=== PATIENT | male | born 1970 | race American Indian/Alaskan Native ===

== ENCOUNTER 2019-10-05 12:16 | Emergency (ER) | payer MEDICARE ==
--- NOTE | 2019-10-05 13:08 | Emergency Department Report ---
<VLADISLAV DOMINGUEZ - Last Filed: 10/05/19 15:41> ED Altered Mental Status HPI - General Chief Complaint: Altered Mental Status Stated Complaint: ALTERED MENTAL STATUS Time Seen by Provider: 10/05/19 12:46 - Related Data Home Medications Medication Instructions Recorded Confirmed Last Taken Benztropine [Cogentin] 1 mg PO BID 10/05/19 10/05/19 Unknown [place] Carbonate ER [Lithobid ER] 300 mg PO BID 10/05/19 10/05/19 10/05/19 Sertraline [Zoloft] 50 mg PO QDAY 10/05/19 10/05/19 10/05/19 haloperidoL [Haldol] 10 mg PO QDAY 10/05/19 10/05/19 Unknown metFORMIN [Glucophage] 500 mg PO QDAY 10/05/19 10/05/19 10/05/19 Allergies Allergy/AdvReac Type Severity Reaction Status Date / Time No Known Allergies Allergy Unverified 10/05/19 12:43 ED Past Medical Hx - Medications Home Medications: Home Medications Medication Instructions Recorded Confirmed Last Taken Type Benztropine [Cogentin] 1 mg PO BID 10/05/19 10/05/19 Unknown History [place] Carbonate ER [Lithobid ER] 300 mg PO BID 10/05/19 10/05/19 10/05/19 History Sertraline [Zoloft] 50 mg PO QDAY 10/05/19 10/05/19 10/05/19 History haloperidoL [Haldol] 10 mg PO QDAY 10/05/19 10/05/19 Unknown History metFORMIN [Glucophage] 500 mg PO QDAY 10/05/19 10/05/19 10/05/19 History ED Course - Reevaluation(s) Reevaluation #2: 10/05/19 15:42 CT HEAD WITHOUT CONTRAST INDICATION / CLINICAL INFORMATION: AMS TECHNIQUE: All CT scans at this location are performed using CT dose reduction for ALARA by means of automated exposure control. COMPARISON: None available. FINDINGS: HEMORRHAGE: No evidence of intracranial hemorrhage or extra-axial f luid collection. EXTRA-AXIAL SPACES: Cortical sulci, sylvian fissures and basilar cisterns have an unremarkable appearance. VENTRICULAR SYSTEM: The ventricular system is of normal size and configuration. CEREBRAL PARENCHYMA: No areas of abnormal brain parenchymal attenuation are identified. There is no indication of recent infarction. MIDLINE SHIFT OR HERNIATION: There is no mass effect. CEREBELLUM / BRAINSTEM: Brainstem and cerebellum have an unremarkable appearance. INTRACRANIAL VESSELS:No abnormalities are identified on this noncontrast head CT. ORBITS: visualized portions of the orbits have an unremarkable appearance. SOFT TISSUES of HEAD: No significant abnormality. CALVARIUM: Evaluation of bone windows reveals no abnormalities. PARANASAL SINUSES / MASTOID AIR CELLS: Paranasal sinuses are free from inflammatory mucosal disease. Lateral benign maxillary mucus retention cysts. Mastoid air cells are normally pneumatized. ADDITIONAL FINDINGS: None. IMPRESSION: 1. No acute intracranial abnormality. Signer Name: Franklyn Perkins MD Signed: 10/05/2019 1:45 PM Workstation Name: [id number] 10/05/19 15:42 CT CERVICAL SPINE WITHOUT CONTRAST INDICATION: ams. TECHNIQUE: Axial imaging performed through the cervical spine without the use of contrast. Sagittal and coronal reconstructed images were also reviewed. All CT scans at this location are performed using CT dose reduction for ALARA by means of automated exposure control. COMPARISON: None FINDINGS: Alignment: Spinal alignment is normal. Bones: There is no acute osseous abnormality. Mild multilevel discogenic DJD is present. No fractures. Soft tissues: No acute or significant incidental soft tissue abnormality. IMPRESSION: No acute abnormality. Signer Name: Franklyn Perkins MD Signed: 10/05/2019 2:10 PM Workstation Name: [id number] Reevaluation #3: 10/05/19 15:42 Patient is urinalysis and CT head and neck showed no acute abnormality. Patient is regained his full level of consciousness. Patient likely has some decreased mental status secondary to some of the new medications that he is taking at his psych facility. Patient has been medically cleared at this time. - Lab Data Result diagrams: 10/05/19 13:01 10/05/19 13:01 ED Disposition Clinical Impression: Drowsiness, Adverse effects of medication, Bipolar disorder Disposition: DC-01 TO HOME OR SELFCARE Is pt being admited?: No Does the pt Need Aspirin: No Condition: Stable Instructions: Bipolar Disorder (ED) Additional Instructions: Your excessive drowsiness is thought to be due to your current psychiatric medication. Return to [facility] for further psychiatric treatment. Follow-up with your primary care doctor or the doctor provided for further medical care Referrals: KASEY SHEEHAN MD [Staff Physician] - 3-5 Days <LEATHA RAINEY - Last Filed: 10/06/19 09:36> ED Altered Mental Status HPI - General Source: patient, EMS Mode of arrival: Stretcher Limitations: No Limitations - History of Present Illness Initial Comments: 49-year-old male with a past medical history of bipolar disorder, diabetes, sleep apnea, hyperlipidemia, and paranoia presents to the hospital from [facility] for unresponsive episode. Patient is currently a anchor on a 1013 signed 10/04 at 6 AM for paranoid delusions. Patient was admitted to [facility] last night. This morning patient received Cogentin, lithium, Glucophage, Pravachol, and Zoloft. Patient ate breakfast and then returned to his room. Patient was found in his bed and they were unable to arouse patient. Patient complains of multiple complaints that change. Patient states he fell trying to get out of the bed but staff denies finding patient on the floor. Patient complains of chronic shortness of breath due to sleep apnea. Planes of anterior chest pain worse with palpation. To the nurse he complained of bilateral flank pain. Resting right arm tremor ED Review of Systems ROS: Stated complaint: ALTERED MENTAL STATUS Other details as noted in HPI ED Past Medical Hx - Past Medical History Hx Diabetes: Yes Hx Psychiatric Treatment: Yes (Depression, paranoia) Additional medical history: high cholesterol - Social History Smoking Status: Never Smoker Substance Use Type: None ED Physical Exam - General Limitations: No Limitations - Other Other exam information: General: No acute distress Head: Atraumatic Eyes: normal appearance, pupils equal reactive to light, extraocular was intact ENT: Moist mucous membranes Neck: Normal appearance, generalized midline cervical tenderness Chest: Clear to auscultation bilaterally, anterior chest wall tenderness CV: Regular rate and rhythm Abdomen: Soft, normal bowel sounds, nontender, nondistended, no rebound or guarding Back: Normal inspection Extremity: Normal inspection, full range of motion Neuro: Sleeping and lethargic however, once aroused he is O x 3, no facial asymmetry, speech clear, resting right arm tremor noted. 5/5 upper and lower extremity strength, sensation grossly intact Psych: Appropriate behavior Skin: No rash ED Course Vital Signs 10/05/19 10/05/19 10/05/19 12:43 13:27 17:54 Temperature 98.5 F Pulse Rate 92 H 90 Respiratory 16 16 16 Rate Blood Pressure 141/84 Blood Pressure 116/78 [Left] O2 Sat by Pulse 94 93 94 Oximetry - Reevaluation(s) Reevaluation #1: 10/05/19 14:47 Patient alert and awake and at his baseline currently. He states he is feeling a little sleepy and hungry. Awaiting CT results prior to feeding patient. Patient signed out to Dr. Marilee Dominguez to follow-up on scans and urine and discharge patient back to [facility]. - Lab Data Result diagrams: 10/05/19 13:01 10/05/19 13:01 Lab Results 10/05/19 10/05/19 10/05/19 Range/Units 13:01 13:01 13:01 WBC 9.0 (4.5-11.0) K/mm3 RBC 6.00 H (3.65-5.03) M/mm3 Hgb 16.0 H (11.8-15.2) gm/dl Hct 48.7 H (35.5-45.6) % MCV 81 L (84-94) fl MCH 27 L (28-32) pg MCHC 33 (32-34) % RDW 14.9 (13.2-15.2) % Plt Count 180 (140-440) K/mm3 Lymph % (Auto) 14.0 (13.4-35.0) % Harding % (Auto) 8.9 H (0.0-7.3) % Eos % (Auto) 0.5 (0.0-4.3) % Baso % (Auto) 0.4 (0.0-1.8) % Lymph # 1.3 (1.2-5.4) K/mm3 Harding # 0.8 (0.0-0.8) K/mm3 Eos # 0.0 (0.0-0.4) K/mm3 Baso # 0.0 (0.0-0.1) K/mm3 Seg Neutrophils % 76.2 H (40.0-70.0) % Seg Neutrophils # 6.8 (1.8-7.7) K/mm3 Sodium 140 (137-145) mmol/L Potassium 4.2 (3.6-5.0) mmol/L Chloride 103.8 (98-107) mmol/L Carbon Dioxide 20 L (22-30) mmol/L Anion Gap 20 mmol/L BUN 11 (9-20) mg/dL Creatinine 0.6 L (0.8-1.5) mg/dL Estimated GFR > 60 ml/min BUN/Creatinine Ratio 18 % Glucose 117 H (75-100) mg/dL POC Glucose (70-105) Calcium 9.7 (8.4-10.2) mg/dL Magnesium 2.20 (1.7-2.3) mg/dL Total Bilirubin 0.70 (0.1-1.2) mg/dL AST 20 (5-40) units/L ALT 12 (7-56) units/L Alkaline Phosphatase 100 (35-129) units/L Troponin T < 0.010 (0.00-0.029) ng/mL Total Protein 7.5 (6.3-8.2) g/dL Albumin 4.7 (3.9-5) g/dL Albumin/Globulin Ratio 1.7 % Urine Color (Yellow) Urine Turbidity (Clear) Urine pH (5.0-7.0) Ur Specific Webster (1.003-1.030) Urine Protein (Negative) mg/dL Urine Glucose (UA) (Negative) mg/dL Urine Ketones (Negative) mg/dL Urine Blood (Negative) Urine Nitrite (Negative) Ur Reducing Substances Urine Bilirubin (Negative) Urine Ictotest Urine Urobilinogen (<2.0) mg/dL Ur Leukocyte Esterase (Negative) Urine WBC (Auto) (0.0-6.0) /HPF Urine RBC (Auto) (0.0-6.0) /HPF Amorphous Crystals Urine Mucus /HPF Salicylates < 0.3 L (2.8-20.0) mg/dL Urine Opiates Screen Urine Methadone Screen Acetaminophen (10.0-30.0) ug/mL Ur Barbiturates Screen Valproic Acid < 2.8 L (50-100) ug/mL Ur Phencyclidine Scrn Ur Amphetamines Screen U Benzodiazepines Scrn [place] 0.3 (0.0-1.2) mmol/L Urine Cocaine Screen U Marijuana (THC) Screen Drugs of Abuse Note Plasma/Serum Alcohol (0-0.07) % 10/05/19 10/05/19 10/05/19 Range/Units 13:01 13:01 13:23 WBC (4.5-11.0) K/mm3 RBC (3.65-5.03) M/mm3 Hgb (11.8-15.2) gm/dl Hct (35.5-45.6) % MCV (84-94) fl MCH (28-32) pg MCHC (32-34) % RDW (13.2-15.2) % Plt Count (140-440) K/mm3 Lymph % (Auto) (13.4-35.0) % Harding % (Auto) (0.0-7.3) % Eos % (Auto) (0.0-4.3) % Baso % (Auto) (0.0-1.8) % Lymph # (1.2-5.4) K/mm3 Harding # (0.0-0.8) K/mm3 Eos # (0.0-0.4) K/mm3 Baso # (0.0-0.1) K/mm3 Seg Neutrophils % (40.0-70.0) % Seg Neutrophils # (1.8-7.7) K/mm3 Sodium (137-145) mmol/L Potassium (3.6-5.0) mmol/L Chloride (98-107) mmol/L Carbon Dioxide (22-30) mmol/L Anion Gap mmol/L BUN (9-20) mg/dL Creatinine (0.8-1.5) mg/dL Estimated GFR ml/min BUN/Creatinine Ratio % Glucose (75-100) mg/dL POC Glucose (70-105) Calcium (8.4-10.2) mg/dL Magnesium (1.7-2.3) mg/dL Total Bilirubin (0.1-1.2) mg/dL AST (5-40) units/L ALT (7-56) units/L Alkaline Phosphatase (35-129) units/L Troponin T (0.00-0.029) ng/mL Total Protein (6.3-8.2) g/dL Albumin (3.9-5) g/dL Albumin/Globulin Ratio % Urine Color Yellow (Yellow) Urine Turbidity Hazy (Clear) Urine pH 6.0 (5.0-7.0) Ur Specific Webster 1.015 (1.003-1.030) Urine Protein 100 mg/dl (Negative) mg/dL Urine Glucose (UA) Negative (Negative) mg/dL Urine Ketones 25 (Negative) mg/dL Urine Blood 1+ (Negative) Urine Nitrite Negative (Negative) Ur Reducing Substances Not Reportable Urine Bilirubin Negative (Negative) Urine Ictotest Not Reportable Urine Urobilinogen 8.0 H (<2.0) mg/dL Ur Leukocyte Esterase Negative (Negative) Urine WBC (Auto) 3.0 (0.0-6.0) /HPF Urine RBC (Auto) 9.0 (0.0-6.0) /HPF Amorphous Crystals Few Urine Mucus Few /HPF Salicylates (2.8-20.0) mg/dL Urine Opiates Screen Urine Methadone Screen Acetaminophen < 5.0 L (10.0-30.0) ug/mL Ur Barbiturates Screen Valproic Acid (50-100) ug/mL Ur Phencyclidine Scrn Ur Amphetamines Screen U Benzodiazepines Scrn [place] (0.0-1.2) mmol/L Urine Cocaine Screen U Marijuana (THC) Screen Drugs of Abuse Note Plasma/Serum Alcohol < 0.01 (0-0.07) % 10/05/19 10/05/19 Range/Units 13:23 13:37 WBC (4.5-11.0) K/mm3 RBC (3.65-5.03) M/mm3 Hgb (11.8-15.2) gm/dl Hct (35.5-45.6) % MCV (84-94) fl MCH (28-32) pg MCHC (32-34) % RDW (13.2-15.2) % Plt Count (140-440) K/mm3 Lymph % (Auto) (13.4-35.0) % Harding % (Auto) (0.0-7.3) % Eos % (Auto) (0.0-4.3) % Baso % (Auto) (0.0-1.8) % Lymph # (1.2-5.4) K/mm3 Harding # (0.0-0.8) K/mm3 Eos # (0.0-0.4) K/mm3 Baso # (0.0-0.1) K/mm3 Seg Neutrophils % (40.0-70.0) % Seg Neutrophils # (1.8-7.7) K/mm3 Sodium (137-145) mmol/L Potassium (3.6-5.0) mmol/L Chloride (98-107) mmol/L Carbon Dioxide (22-30) mmol/L Anion Gap mmol/L BUN (9-20) mg/dL Creatinine (0.8-1.5) mg/dL Estimated GFR ml/min BUN/Creatinine Ratio % Glucose (75-100) mg/dL POC Glucose 107 H (70-105) Calcium (8.4-10.2) mg/dL Magnesium (1.7-2.3) mg/dL Total Bilirubin (0.1-1.2) mg/dL AST (5-40) units/L ALT (7-56) units/L Alkaline Phosphatase (35-129) units/L Troponin T (0.00-0.029) ng/mL Total Protein (6.3-8.2) g/dL Albumin (3.9-5) g/dL Albumin/Globulin Ratio % Urine Color (Yellow) Urine Turbidity (Clear) Urine pH (5.0-7.0) Ur Specific [place] (1.003-1.030) Urine Protein (Negative) mg/dL Urine Glucose (UA) (Negative) mg/dL Urine Ketones (Negative) mg/dL Urine Blood (Negative) Urine Nitrite (Negative) Ur Reducing Substances Urine Bilirubin (Negative) Urine Ictotest Urine Urobilinogen (<2.0) mg/dL Ur Leukocyte Esterase (Negative) Urine WBC (Auto) (0.0-6.0) /HPF Urine RBC (Auto) (0.0-6.0) /HPF Amorphous Crystals Urine Mucus /HPF Salicylates (2.8-20.0) mg/dL Urine Opiates Screen Presumptive negative Urine Methadone Screen Presumptive negative Acetaminophen (10.0-30.0) ug/mL Ur Barbiturates Screen Presumptive negative Valproic Acid (50-100) ug/mL Ur Phencyclidine Scrn Presumptive negative Ur Amphetamines Screen Presumptive negative U Benzodiazepines Scrn Presumptive negative [place] (0.0-1.2) mmol/L Urine Cocaine Screen Presumptive negative U Marijuana (THC) Screen Presumptive negative Drugs of Abuse Note Disclamer Plasma/Serum Alcohol (0-0.07) % - EKG Data -: EKG Interpreted by Sd EKG shows normal: sinus rhythm, ST-T waves (no stemi) Rate: normal (85) - Radiology Data Radiology results: report reviewed CHEST 1 VIEW INDICATION: sob. COMPARISON: None. FINDINGS: Support devices: None. Heart: Within normal limits. Pulmonary vasculature: Normal. Lungs/Pleura: No acute air space or interstitial disease. Additional findings: None. IMPRESSION: 1. No acute findings. - Medical Decision Making Pt signed out to Dr. Harmon here to follow-up on pending CAT scan results as well as urine. Patient is at baseline at time of patient turnover. E Patient to be discharge back to [facility] if he does not require admission Patient's transient alteration mental status/excessive drowsiness likely secondary to his medications that he received at the [facility] facility. - Differential Diagnosis Medication reaction, encephalopathy, intracranial hemorrhage, hypoglycemia Critical Care Time: No Critical care attestation.: If time is entered above; I have spent that time in minutes in the direct care of this critically ill patient, excluding procedure time. ED Disposition Is pt being admited?: No
[2019-10-05 13:30] LABS: Basophils % (Auto) 0.4 % (0.0-1.8); Eosinophils % (Auto) 0.5 % (0.0-4.3); Hematocrit 48.7 % (35.5-45.6); Lymphocytes # (Auto) 1.3 K/mm3 (1.2-5.4); Mean Corpuscular HGB Conc 33 % (32-34); Mean Corpuscular Volume 81 fl (84-94); Monocytes # (Auto) 0.8 K/mm3 (0.0-0.8); Monocytes % (Auto) 8.9 % (0.0-7.3); Platelet Count 180 K/mm3 (140-440); Red Cell Distribution Width 14.9 % (13.2-15.2)
--- NOTE | 2019-10-05 13:32 | XRay Report ---
CHEST 1 VIEW INDICATION: sob. COMPARISON: None. FINDINGS: Support devices: None. Heart: Within normal limits. Pulmonary vasculature: Normal. Lungs/Pleura: No acute air space or interstitial disease. Additional findings: None. IMPRESSION: 1. No acute findings. Signer Name: Franklyn Perkins MD Signed: 10/05/2019 1:27 PM Workstation Name: [id number]
[2019-10-05 14:03] LABS: Alanine Aminotransferase 12 units/L (7-56); Albumin 4.7 g/dL (3.9-5); BUN/Creatinine Ratio 18; Blood Urea Nitrogen 11 mg/dL (9-20); Calcium 9.7 mg/dL (8.4-10.2); Hemolysis Index 4
[2019-10-05 14:33] LABS: Amphetamine Screen,Urine PRESUMPTIVE NEGATIVE; Benzodiazepines Screen,Urine PRESUMPTIVE NEGATIVE; Cannabinoid Screen,Urine PRESUMPTIVE NEGATIVE; Cocaine Screen,Urine PRESUMPTIVE NEGATIVE; Methadone Screen,Urine PRESUMPTIVE NEGATIVE; Opiate Screen,Urine PRESUMPTIVE NEGATIVE
[2019-10-05 14:35] LABS: Amorphous Crystals,Urine Few; Mucus,Urine FEW /HPF
--- NOTE | 2019-10-05 14:49 | Cat Scan Report ---
CT HEAD WITHOUT CONTRAST INDICATION / CLINICAL INFORMATION: AMS TECHNIQUE: All CT scans at this location are performed using CT dose reduction for ALARA by means of automated e xposure control. COMPARISON: None available. FINDINGS: HEMORRHAGE: No evidence of intracranial hemorrhage or extra-axial fluid collection. EXTRA-AXIAL SPACES: Cortical sulci, sylvian fissures and basilar cisterns have an unremarkable appear ance. VENTRICULAR SYSTEM: The ventricular system is of normal size and configuration. CEREBRAL PARENCHYMA: No areas of abnormal brain parenchymal attenuation are identified. There is no i ndication of recent infarction. MIDLINE SHIFT OR HERNIATION: There is no mass effect. CEREBELLUM / BRAINSTEM: Brainstem and cerebellum have an unremarkable appearance. INTRACRANIAL VESSELS:No abnormalities are identified on this noncontrast head CT. ORBITS: visualized portions of the orbits have an unremarkable appearance. SOFT TISSUES of HEAD: No significant abnormality. CALVARIUM: Evaluation of bone windows reveals no abnormalities. PARANASAL SINUSES / MASTOID AIR CELLS: Paranasal sinuses are free from inflammatory mucosal disease. Lateral benign maxillary mucus retention cysts. Mastoid air cells are normally pneumatized. ADDITIONAL FINDINGS: None. IMPRESSION: 1. No acute intracranial abnormality. Signer Name: Franklyn Perkins MD Signed: 10/05/2019 2:45 PM Workstation Name: [id number]
[2019-10-05 15:07] LABS: Bilirubin,Urine Negative (Negative); Color,Urine Yellow (Yellow)
[2019-10-05 15:08] LABS: Blood,Urine 1+ (Negative)
--- NOTE | 2019-10-05 15:14 | Cat Scan Report ---
CT CERVICAL SPINE WITHOUT CONTRAST INDICATION: ams. TECHNIQUE: Axial imaging performed through the cervical spine without the use of contrast. Sagittal and coronal reconstructed images were also reviewed. All CT scans at this location are performed us ing CT dose reduction for ALARA by means of automated exposure control. COMPARISON: None FINDINGS: Alignment: Spinal alignment is normal. Bones: There is no acute osseous abnormality. Mild multilevel discogenic DJD is present. No fractu res. Soft tissues: No acute or significant incidental soft tissue abnormality. IMPRESSION: No acute abnormality. Signer Name: Franklyn Perkins MD Signed: 10/05/2019 3:10 PM Workstation Name: [id number]
[2019-10-05 17:56] VITALS: BP 116/78
== END 2019-10-05 17:56 | disposition home or self-care (01) ==
LOC: ED 12:16
DX: T50.995A Adverse effect of other drugs, medicaments and biological substances, initial encounter (principal); F31.89 Other bipolar disorder; Y92.89 Other specified places as the place of occurrence of the external cause
CPT/HCPCS: 36415; 70450; 71045; 72125; 80053; 80164; 80178; 80307; 80320; 81001; 82962; 83735; 84484; 85025; 93005; 93010; G0480